=== PATIENT | female | born 1945 | race Caucasian/White ===

== ENCOUNTER → 2022-03-21 13:24 | Outpatient (BNVA) | payer MEDICARE, BC, SELFPAY | PROVIDERS: PCP Physical Medicine & Rehabilitation; Visit Provider Internal Medicine | DX: M53.3 Sacrococcygeal disorders, not elsewhere classified (principal) | CPT/HCPCS: 99202 ==

== ENCOUNTER 2022-04-29 08:53 | Day surgery (SDC) | payer MEDICARE, BC, SELFPAY ==
[2022-04-22 08:36] VITALS: BMI 22.4
--- NOTE | ~2022-04-29 | FL_ITS ---
EXAMINATION: XR FLUOROSCOPY WITH IMAGES CLINICAL INFORMATION: Sacral iliac RFA COMPARISON: None. TECHNIQUE: Fluoroscopy performed by Dr. Bo Fluoroscopy time: 32.3 seconds 9.74 mGy Images: 7 FINDINGS: Probes and wires are seen overlying the sacrum FL/FL guidance in OR IMPRESSION: Fluoroscopy for pain management procedure.
--- NOTE | 2022-04-29 11:15 | MHC.SHP ---
Pre-Procedural Eval Section A Date of Service: 04/29/22 The patient is an INPATIENT: No Changes since office visit: Yes Patient answered all questions The History & Physical has been completed within 30 days and I have reviewed it.: No Section B Chief Complaint: sacrococcygeal pain Relevant Family History (Specify if Yes): No Relevant Social History: Other (specify) Present Medications: see Short Stay Collaborative assessment Medical History: Significant History (SIJ pain) History of Previous Operations: No relevant previous surgery Allergies: Allergies Allergy/AdvReac Type Severity Reaction Status Date / Time ciprofloxacin [From Cipro] Allergy Severe Anaphylaxis Verified 03/21/22 13:29 Review of Systems Sugical H&P ROS: Negative: Constitution, Cardiovascular and Respiratory Exam Surgical H&P Exam: Normal: HEENT, Normal: Heart and Normal: Lungs Plan Diagnosis/Plan: Unchanged I have reviewed the history and physical and performed a pertinent physical examination on my patient. No changes have occurred unless specified.
--- NOTE | 2022-04-29 11:16 | P.BOP_ITS ---
Brief Operative Note Date of Service: 04/29/22 Pre-op diagnosis: Sacroiliac joint pain, left Post-op diagnosis: same Procedure: Sacroiliac joint innervation cooled radiofrequency ablation, left Surgeon: Lars Bo MD Was an Dehydrogenation Operator Head used for this Procedure?: No Estimated blood loss (mL): 3 Pathology: none sent Condition: stable Disposition: same day
--- NOTE | 2022-04-29 11:16 | W.PM.OPN ---
Operative Note Operative Note Date of Service: 04/29/22 Narrative: Cooled radiofrequency ablation, left L5 dorsal ramus and lateral branches of the S1, S2, S3 posterior primary rami nerves - fluoroscopic guided After obtaining written consent, pre-procedure blood pressure and heart rate were stable and recorded in the nursing record. Standard monitors were applied. The patient was placed prone on the fluoroscopy table. The area overlying the peripheral nerves was widely prepped with chloraprep, allowed to dry and sterilely draped. Using fluoroscopy, the appropriate landmarks were identified. The skin overlying the target was anesthetized with 0.5% lidocaine. 18 gauge 50mm radiofrequency needles were advanced under fluoroscopic guidance to the sacral ala (L5 medial branch) and around the lateral margins of the S1, S2 & S3 foramina (sacral lateral branches). Verification using lateral and AP views. Aspiration was negative for heme. Impedences were verified under 600 ohms. Sensory testing (50 Hz) and then motor testing (2 Hz) confirmed needle placement at each site within the appropriate voltage thresholds. Each site was injected with 0.5 ml 2% preservative-free lidocaine. The skin was raised above the underlying tissue using local anesthetic in saline solution to minimize risk of skin injury from the radiofrequency ablation tip. Radiofrequency lesioning was performed for 165 seconds at 80 deg Celcius tissue temperature. Each site was then injected with 1 ml 0.5% preservative-free ropivacaine. The needles were removed, skin cleansed and a sterile bandage was applied. The patient tolerated the procedure well and no complications were encountered. No immediate evidence of skin damage was seen. Following the procedure the patient's vital signs were stable. The patient was discharged home in good condition with post-procedural instructions. Time Out: Immediately prior to the procedure, the following was verbally confirmed that there is a signed consent form and that the correct patient, planned procedure, site and side are consistent with documentation and that necessary equipment and/or blood products are available prior to the start of the case. Complications: none EBL: <5 cc
[2022-04-29 12:14] VITALS: BP 149/70; PULSE 58; RESP 16; TEMP 36.9; O2SAT 97
== END 2022-04-29 12:26 | disposition home or self-care (01) ==
PROVIDERS: PCP Family Medicine; Visit Provider Internal Medicine
PROC: (CPT 64635; principal; 2022-04-29 10:30)
DX: M53.3 Sacrococcygeal disorders, not elsewhere classified (principal); M81.0 Age-related osteoporosis without current pathological fracture; M19.90 Unspecified osteoarthritis, unspecified site; I25.10 Atherosclerotic heart disease of native coronary artery without angina pectoris; I10 Essential (primary) hypertension; Z87.891 Personal history of nicotine dependence; E03.9 Hypothyroidism, unspecified; F32.A Depression, unspecified; Z79.899 Other long term (current) drug therapy; Z88.1 Allergy status to other antibiotic agents; Z96.662 Presence of left artificial ankle joint; Z96.642 Presence of left artificial hip joint
CPT/HCPCS: 64625

== ENCOUNTER → 2022-06-13 13:57 | Outpatient (BNVA) | payer MEDICARE, BC, SELFPAY | PROVIDERS: PCP Family Medicine; Visit Provider Internal Medicine | DX: M53.3 Sacrococcygeal disorders, not elsewhere classified (principal) | CPT/HCPCS: 99212 ==

== ENCOUNTER 2022-10-19 09:48 | Day surgery (SDC) | payer MEDICARE, BC, SELFPAY ==
[2022-10-13 11:53] VITALS: BMI 22.2
--- NOTE | 2022-10-18 13:06 | HO.ANESPROP2 ---
Documented by User: Liudmila Latif NP 10/18/22 13:27 HPI - Anesthesia Eval Consult details Narrative: 76yo F for Right 2nd Toe Amputation Cardiac cleared Pseudocholinesterase deficiency PMFSH Active Problems Active Problems: All Active Problems (Updated 10/13/22 @ 11:53 by Iveth Khoury RN) Osteoporosis (Acute) Insomnia (Acute) Constipation (Acute) GERD (gastroesophageal reflux disease) (Acute) SI (sacroiliac) joint dysfunction (Acute) CAD (coronary artery disease) (Acute) Hypothyroidism (Acute) Depression (Acute) Hypertension (Acute) Past Medical History Medical History (Updated 10/13/22 @ 11:53 by Iveth Khoury RN) Arthritis CAD (coronary artery disease) Chronic renal insufficiency Constipation Depression Family history of pseudocholinesterase deficiency GERD (gastroesophageal reflux disease) Hypertension Hypothyroidism Insomnia Osteoarthritis Osteoporosis 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 Surgical History Surgical History (Updated 10/13/22 @ 11:53 by Iveth Khoury RN) H/O colonoscopy H/O: hysterectomy History of left ankle joint replacement History of left hip replacement Hx of bilateral cataract extraction Hx of bilateral inguinal hernia repair Hx of cholecystectomy Hx of reduction mammoplasty Social History Social History Are you a primary healthcare science specialist to a significant other at home: No Do you presently have visiting nurse or other home services: No Patient Tobacco Use Status: Former Tobacco user Quit Date: 1979 Tobacco use type: Cigarette Use of substances other than those prescribed or required for medical reasons: Yes Substance Use Type Other:: has medical marijuana card Substance Use Frequency: Weekly Have you been hit, kicked, punched, or otherwise hurt by someone within the past year? If so, by whom?: No Are you DNR?: Yes Advance Directives: No Advance Directives Information Provided: Yes (advised to bring copies DOS) Advance Directives on File: No Recently lost weight without trying: No Eating poorly because of decreased appetite: No Nutrition Risks: No Nutritional Risk Poor oral hygiene: No Meds Allergies Allergy/AdvReac Type Severity Reaction Status Date / Time ciprofloxacin [From Cipro] Allergy Severe Anaphylaxis Verified 10/19/22 09:57 Home Medications Medication Instructions Recorded Confirmed Last Taken Type bupropion HCl 150 mg 24 hr tablet, 150 mg PO QAM 03/21/22 10/13/22 10/19/22 08:00 History extended release diclofenac sodium 1 % topical gel 2 g topical TID PRN Pain 03/21/22 10/13/22 Unknown History diltiazem HCl 180 mg 180 mg PO DAILY 03/21/22 10/13/22 10/19/22 08:00 History capsule,extended release 24 hr, controlled (DILT-XR) duloxetine 60 mg capsule,delayed 60 mg PO DAILY 03/21/22 10/13/22 10/19/22 08:00 History release estradiol 10 mcg vaginal tablet 10 mcg vaginal 2XW 03/21/22 10/13/22 Unknown History levothyroxine 88 mcg tablet 88 mcg PO QAM 03/21/22 10/13/22 10/19/22 08:00 History metoprolol succinate 25 mg 12.5 mg PO DAILY 03/21/22 10/13/22 10/19/22 08:00 History tablet,extended release 24 hr omeprazole 20 mg capsule,delayed 20 mg PO DAILY 03/21/22 10/13/22 10/19/22 08:00 History release oxycodone 10 mg tablet 10 mg PO QID PRN Pain 03/21/22 10/13/22 10/19/22 08:00 History trazodone 50 mg tablet 25 mg PO BEDTIME PRN Insomnia 03/21/22 10/13/22 Unknown History Exam Exam Date and Time: October 18, 2022 1306 Height,Weight and Vital Signs: Height 4 ft 11 in Weight 49.895 kg Narrative Narrative: EKG 09/2022 SR with RBBB @ 63 No changes from prior ECHO 11/2021 LV nml in size and thickness LV systolic function is nml with EF 70% No signif LV WMA Nml RV size and function Trace mitral and tricuspid valve regurg PASP nml Cardiac cath 11/2021 No signif CAD is seen. 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 Family History Family history of problems with anesthesia: No (Pseudochlineserase deficiency) Surgical History Surgical History (Updated 10/13/22 @ 11:53 by Iveth Khoury RN) H/O colonoscopy H/O: hysterectomy History of left ankle joint replacement History of left hip replacement Hx of bilateral cataract extraction Hx of bilateral inguinal hernia repair Hx of cholecystectomy Hx of reduction mammoplasty Social History Social History Are you a primary healthcare science specialist to a significant other at home: No Do you presently have visiting nurse or other home services: No Patient Tobacco Use Status: Former Tobacco user Quit Date: 1979 Tobacco use type: Cigarette Use of substances other than those prescribed or required for medical reasons: Yes Substance Use Type Other:: has medical marijuana card Substance Use Frequency: Weekly Have you been hit, kicked, punched, or otherwise hurt by someone within the past year? If so, by whom?: No Are you DNR?: Yes Advance Directives: No Advance Directives Information Provided: Yes (advised to bring copies DOS) Advance Directives on File: No Recently lost weight without trying: No Eating poorly because of decreased appetite: No Nutrition Risks: No Nutritional Risk Poor oral hygiene: No Meds Allergies Allergy/AdvReac Type Severity Reaction Status Date / Time ciprofloxacin [From Cipro] Allergy Severe Anaphylaxis Verified 10/19/22 09:57 Home Medications Medication Instructions Recorded Confirmed Last Taken Type bupropion HCl 150 mg 24 hr tablet, 150 mg PO QAM 03/21/22 10/13/22 10/19/22 08:00 History extended release diclofenac sodium 1 % topical gel 2 g topical TID PRN Pain 03/21/22 10/13/22 Unknown History diltiazem HCl 180 mg 180 mg PO DAILY 03/21/22 10/13/22 10/19/22 08:00 History capsule,extended release 24 hr, controlled (DILT-XR) duloxetine 60 mg capsule,delayed 60 mg PO DAILY 03/21/22 10/13/22 10/19/22 08:00 History release estradiol 10 mcg vaginal tablet 10 mcg vaginal 2XW 03/21/22 10/13/22 Unknown History levothyroxine 88 mcg tablet 88 mcg PO QAM 03/21/22 10/13/22 10/19/22 08:00 History metoprolol succinate 25 mg 12.5 mg PO DAILY 03/21/22 10/13/22 10/19/22 08:00 History tablet,extended release 24 hr omeprazole 20 mg capsule,delayed 20 mg PO DAILY 03/21/22 10/13/22 10/19/22 08:00 History release oxycodone 10 mg tablet 10 mg PO QID PRN Pain 03/21/22 10/13/22 10/19/22 08:00 History trazodone 50 mg tablet 25 mg PO BEDTIME PRN Insomnia 03/21/22 10/13/22 Unknown History Exam Airway Mallampati Class: II TM Dist: >3cm Neck ROM: Full Heart: rr Lungs: cta Assessment and Plan Final Anesthetic Review Family History of Problems with Anesthesia: No (Pseudochlineserase deficiency) NPO: Yes ASA Class: II Final Preanesthetic Review: No Changes in Pt Med Stat, Meds/Allgs Chart Reviewed, Consent Obtained/Reviewed and Anes Risks/Benef Reviewed Patient Risk: Low Procedure Risk: Low Anesthetic Plan Anesthetic Plan: MAC: Disposition: Standard PACU
[2022-10-19 10:07] VITALS: BP 134/78; PULSE 65; RESP 16; TEMP 36.8; O2SAT 98
[2022-10-19] MEDS: Lactated Ringers 1,000 ML 100 ML IVCONT (10:40)
[2022-10-19 11:40] VITALS: BP 123/48; PULSE 61; RESP 16; TEMP 36.1; O2SAT 96
[2022-10-19 11:55] VITALS: BP 135/71; PULSE 57; RESP 18; O2SAT 99
[2022-10-19] MEDS: Acetaminophen 1,000 MG/100 ML PIGGYBACK 400 MG IV (11:58)
[2022-10-19 12:10] VITALS: BP 142/69; PULSE 58; RESP 16; O2SAT 98
[2022-10-19 12:25] VITALS: BP 144/74; PULSE 61; RESP 16; TEMP 36.8; O2SAT 98
--- NOTE | 2022-10-20 10:24 | OP_ITS ---
SURGEON: Ovidio Paz DPM PREOPERATIVE DIAGNOSIS: Painful chronic right second digit. POSTOPERATIVE DIAGNOSIS: Resolved second digit. PROCEDURE PERFORMED: Radical debridement and removal of the right second toe. ESTIMATED BLOOD LOSS: None. COMPLICATIONS: None. ANESTHESIA: MAC anesthesia with local total block, 15 mL of 50:50 mixture of 1% plain lidocaine and 0.5% plain ropivacaine. ASSISTANTS: SPECIMENS: Digit second right. RECORDER HELPER GRAVITY PROSPECTING: None. INDICATION: This patient has been patient of mine for some now and has extreme pain in all shoe gear of the right second digit. The patient has exhausted all conservative treatment and watch removal of the digit. MATERIALS: 3-0 Prolene and 3-0 Vicryl. INJECTABLES: None, but patient was given Toradol intraoperatively and antibiotics by Anesthesia. CONDITION: The patient tolerated procedure and anesthesia well. DISPOSITION: The patient was sent to recovery room in good stable condition with vital signs stable as per Anesthesia. It must be noted that there was good reperfusion of all the four toes as well as the stump of the right second toe following procedure. DESCRIPTION OF PROCEDURE: The patient was brought into the operating room via gurney and placed on the operating room table in the supine position. Once the patient was given adequate amount of MAC anesthesia, mixture of the above anesthesia was injected into the right foot. A 15 blade was used in order to make an incision approximately over the MPJ of the right second toe. A 15 blade was used in order to make a curvilinear incision which was made on the plantar surface. After the curved Metzenbaum scissors were used in order to dissect all the way down to the joint space. Once this was accomplished, the joint was freed up as well as the tendon and muscle ligament of the right second toe radically debrided and removed. Once this was accomplished, copious amounts of normal sterile saline were infiltrated into the area in order to lavage it and was seen at the area was cleaned. Next, 3-0 Vicryl was used in order to sew up the deep layers and 3-0 Prolene in order to sew up the skin edges using simple suture technique. It must be noted that the skin edges reapproximated very well and formed a small stump where the second digit was. There was adequate perfusion seen and noted to the nurse. There was no tourniquet used during the procedure. Xeroform was placed over the incision site, followed by sterile dressing. The patient also was given an Sean wrap and Kerlix bandage. The patient was provided with a Cam walker which she had following the procedure which she brought. The patient was sent to recovery room in good stable condition with anesthesia. Vital signs are stable. The patient has been provided all postop instructions and postop pain medicine. The patient did receive intraoperatively antibiotics as well as Toradol. The patient will be seen with me in a few days. It must be noted that hemostasis was none. MALIA Epstein/ANNE / [phone]
== END 2022-10-19 13:35 | disposition home or self-care (01) ==
LOC: HO.SSS 09:48
PROVIDERS: PCP Family Medicine; Visit Provider Podiatrist
PROC: (CPT 28810; principal; 2022-10-19 11:00)
DX: M79.671 Pain in right foot (principal); M19.90 Unspecified osteoarthritis, unspecified site; I10 Essential (primary) hypertension; E03.9 Hypothyroidism, unspecified; D64.9 Anemia, unspecified; Z79.899 Other long term (current) drug therapy; Z88.1 Allergy status to other antibiotic agents; Z87.891 Personal history of nicotine dependence
CPT/HCPCS: 28810; 88305; 88311; J0131; J0690; J1885; J2405; J2795; J3010

== ENCOUNTER 2023-04-21 11:47 | Outpatient (AMB) | payer MEDICARE, BC, SELFPAY ==
--- NOTE | 2023-04-21 11:49 | A.OFFVIS_ITS ---
Intake Vital Signs 04/21/23 11:55 Height 5 ft Weight 110 lb 2 oz BMI 21.5 BP 150/74 H Blood Pressure Location Lt brachial Respiration 16 Pulse 68 Pulse Source Pulse Oximeter Pulse Oximetry (%) 99 Oxygen Delivery Method Room Air Oxygen Flow Rate 96 Intake Visit Reasons: Follow Up/Sacrococcygeal Pain Allergies ciprofloxacin [From Cipro] Allergy (Severe, Verified 04/21/23 11:49) Anaphylaxis HPI Follow Up/Sacrococcygeal Pain HPI Details 77-year-old female presenting today for a follow-up of sacrococcygeal pain. She states that her pain relapsed about a month ago after a long train journey. The pain is the same as before and is localized in the lower back and sacrum regions. She has a history of arthritis. She is amenable to repeat the RFA again. She is not interested in nerve stimulators at this time. She had tried injections, physical therapy, and oxycodone with no relief. Past Procedures: 04/29/22: Left SIJ RFA ? 90% relief for about 11 months. [facility] Medical History (Updated 10/13/22 @ 11:53 by Iveth Khoury RN) Arthritis CAD (coronary artery disease) Chronic renal insufficiency Constipation Depression Family history of pseudocholinesterase deficiency GERD (gastroesophageal reflux disease) Hypertension Hypothyroidism Insomnia Osteoarthritis Osteoporosis 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 Surgical History (Updated 10/13/22 @ 11:53 by Iveth Khoury RN) H/O colonoscopy H/O: hysterectomy History of left ankle joint replacement History of left hip replacement Hx of bilateral cataract extraction Hx of bilateral inguinal hernia repair Hx of cholecystectomy Hx of reduction mammoplasty Social History Are you a primary complex care nurse practitioner to a significant other at home: No Do you presently have visiting nurse or other home services: No Patient Tobacco Use Status: Former Tobacco user Quit Date: 1979 Tobacco use type: Cigarette Review of Systems Const All systems reviewed & are unremarkable except as noted in HPI and below Physical Exam Vital Signs: Last Vital Signs Pulse 68 04/21/23 11:55 Resp 16 04/21/23 11:55 BP 150/74 H 04/21/23 11:55 Pulse Ox 99 04/21/23 11:55 Oxygen Delivery Method Room Air 04/21/23 11:55 Oxygen Flow Rate 96 04/21/23 11:55 BMI result Body Mass Index 21.5 General: Appears afebrile. Alert and oriented. Mood and affect appropriate. Follows and participates in conversation appropriately. Respiratory effort is unlabored. Able to transition from sit to stand unassisted. Ambulates with bilaterally normal heel strike and toe off. Results Reviewed Results Reviewed: No imaging is available for review. Assessment & Plan Assessment & Plan (1) SI (sacroiliac) joint dysfunction: Comment: Status post SIJ innervation RFA with moderate relief in October 2021 and excellent relief in April 2022 Code(s): M53.3 - Sacrococcygeal disorders, not elsewhere classified Plan Will schedule her for a repeat left SIJ RFA as the patient had 90% relief for 11 months after the last RFA. Discussed the risks and benefits of the procedure with the patient in detail. All questions were answered. The patient is on board with the plan. Justification for interventional therapy: ? Patient with average pain > 6/10 ? Patient has exhausted conservative therapy ? Previous therapeutic RFA and diagnostic injections all provided >50% relief Scribed for Dr. Bo by Nishant Mansfield, caregivers non medical, on 04/21/2023. I, Dr. Bo, have personally reviewed and agree with the information entered by the scribe. Coding Level of Care Code Est Pt Level 3 (83843) Diagnoses SI (sacroiliac) joint dysfunction M53.3
[2023-04-21 11:55] VITALS: BP 150/74; PULSE 68; RESP 16; O2SAT 99; BMI 21.5
== END 2023-04-21 12:11 | disposition home or self-care (01) ==
PROVIDERS: PCP Family Medicine; Visit Provider Internal Medicine
DX: M53.3 Sacrococcygeal disorders, not elsewhere classified (principal)
CPT/HCPCS: 99213

== ENCOUNTER → 2023-04-21 11:47 | Outpatient (BNVA) | payer MEDICARE, BC, SELFPAY | PROVIDERS: PCP Family Medicine; Visit Provider Internal Medicine | DX: M53.3 Sacrococcygeal disorders, not elsewhere classified (principal) | CPT/HCPCS: 99212 ==

== ENCOUNTER 2023-05-10 12:26 | Day surgery (SDC) | payer MEDICARE, BC, SELFPAY ==
--- NOTE | ~2023-05-10 | FL_ITS ---
EXAMINATION: XR FLUOROSCOPY WITH IMAGES CLINICAL INFORMATION: Left SI joint RFA. COMPARISON: None available. TECHNIQUE: Fluoroscopy Supervised By: Dr. Lars Bo. Fluoroscopy Time: 0.5 minutes. Cumulative Dose: 7.39 mGy. DAP: 0.794 Gycm2. Images: 5. FINDINGS: 5 digital images obtained with 3 needle positions posterior to left S1, S2 and S3 vertebra connected to electrodes. No contrast visualized. Visualized sacrum and the left SI joint appears unremarkable. FL/FL guidance in OR IMPRESSION: Fluoroscopy guidance was provided to referring physician for left SI joint RFA.
[2023-05-10 12:41] VITALS: BMI 22.6
--- NOTE | 2023-05-10 14:06 | MHC.SHP ---
Pre-Procedural Eval Section A Date of Service: 05/10/23 The patient is an INPATIENT: No Changes since office visit: Yes Patient answered all questions The History & Physical has been completed within 30 days and I have reviewed it.: No Section B Chief Complaint: Sacrococcygeal disorders, not elsewhere classified Relevant Family History (Specify if Yes): No Relevant Social History: None Present Medications: see Short Stay Collaborative assessment Medical History: No relevant PMH History of Previous Operations: No relevant previous surgery Allergies: Allergies Allergy/AdvReac Type Severity Reaction Status Date / Time ciprofloxacin [From Cipro] Allergy Severe Anaphylaxis Verified 04/21/23 11:49 Review of Systems Sugical H&P ROS: Negative: Constitution, Cardiovascular and Respiratory Exam Surgical H&P Exam: Normal: HEENT, Normal: Heart and Normal: Lungs Plan Diagnosis/Plan: Unchanged I have reviewed the history and physical and performed a pertinent physical examination on my patient. No changes have occurred unless specified. Proceed with left sacroiliac joint innervation Cooled radiofrequency ablation. Time Spent With Patient Time: Total time managing care of this patient today ____ minutes.
--- NOTE | 2023-05-10 14:07 | PM.OP ---
Brief Operative Note Date of Service: 05/10/23 Pre-op diagnosis: Sacroiliac joint pain Post-op diagnosis: same Procedure: Cooled radiofrequency ablation, left L5 dorsal ramus and lateral branches of the S1, S2, S3 posterior primary rami nerves - fluoroscopic guided Implants: None Surgeon: Lars Bo MD Anesthesia: none Was an Director [employer] used for this Procedure?: No Estimated blood loss (mL): 2 Pathology: none sent Condition: stable Disposition: same day
--- NOTE | 2023-05-10 14:08 | W.PM.OPN ---
Operative Note Operative Note Date of Service: 05/10/23 Narrative: Cooled radiofrequency ablation, Left L5 dorsal ramus and lateral branches of the S1, S2, S3 posterior primary rami nerves - fluoroscopic guided After obtaining written consent, pre-procedure blood pressure and heart rate were stable and recorded in the nursing record. Standard monitors were applied. The patient was placed prone on the fluoroscopy table. The area overlying the peripheral nerves was widely prepped with chloraprep, allowed to dry and sterilely draped. Using fluoroscopy, the appropriate landmarks were identified. The skin overlying the target was anesthetized with 0.5% lidocaine. 18 gauge 50mm radiofrequency needles were advanced under fluoroscopic guidance to the sacral ala (L5 medial branch) and around the lateral margins of the S1, S2 & S3 foramina (sacral lateral branches). Verification was done using lateral and AP views. Aspiration was negative for heme. Impedences were verified under 600 ohms. Sensory testing (50 Hz) and then motor testing (2 Hz) confirmed needle placement at each site within the appropriate voltage thresholds. Each site was injected with 0.5-1 ml 2% preservative-free lidocaine. Radiofrequency lesioning was performed for 165 seconds at 80 deg Celcius tissue temperature. Each site was then injected with 1 ml 0.5% preservative-free ropivacaine. The needles were removed, skin cleansed and a sterile bandage was applied. The patient tolerated the procedure well and no complications were encountered. Following the procedure the patient's vital signs were stable. The patient was discharged home in good condition with post-procedural instructions. Time Out: Immediately prior to the procedure, the following was verbally confirmed that there is a signed consent form and that the correct patient, planned procedure, site and side are consistent with documentation and that necessary equipment and/or blood products are available prior to the start of the case. Complications: none EBL: <5 cc
[2023-05-10 15:30] VITALS: BP 150/87; PULSE 64; RESP 20; TEMP 36.6; O2SAT 97
== END 2023-05-10 15:50 | disposition home or self-care (01) ==
PROVIDERS: PCP Family Medicine; Visit Provider Internal Medicine
PROC: (CPT 64635; principal; 2023-05-10 13:40)
DX: M46.1 Sacroiliitis, not elsewhere classified (principal); M53.3 Sacrococcygeal disorders, not elsewhere classified; M54.50 Low back pain, unspecified; M19.90 Unspecified osteoarthritis, unspecified site; M81.0 Age-related osteoporosis without current pathological fracture; I25.10 Atherosclerotic heart disease of native coronary artery without angina pectoris; I10 Essential (primary) hypertension; E88.09 Other disorders of plasma-protein metabolism, not elsewhere classified; Z96.642 Presence of left artificial hip joint; Z96.662 Presence of left artificial ankle joint; Z79.899 Other long term (current) drug therapy; Z88.1 Allergy status to other antibiotic agents; Z66 Do not resuscitate; Z98.890 Other specified postprocedural states; Z87.891 Personal history of nicotine dependence
CPT/HCPCS: 64625; J2795

== ENCOUNTER → 2023-05-10 12:26 | Outpatient (BNV) | payer MEDICARE, BC, SELFPAY | PROVIDERS: PCP Family Medicine; Visit Provider Internal Medicine | DX: M53.3 Sacrococcygeal disorders, not elsewhere classified (principal); Z00.00 Encounter for general adult medical examination without abnormal findings | CPT/HCPCS: 64625 ==

== ENCOUNTER 2023-07-07 11:23 | Outpatient (AMB) | payer MEDICARE, BC, SELFPAY ==
--- NOTE | 2023-07-07 11:26 | MHC.OFFVIS ---
Intake Vital Signs 07/07/23 11:27 Height 4 ft 11 in Weight 112 lb BMI 22.6 Respiration 14 Pulse 58 Pulse Source Pulse Oximeter Pulse Oximetry (%) 96 Oxygen Delivery Method Room Air Intake Visit Reasons: s/p left SIJ RFA Allergies ciprofloxacin [From Cipro] Allergy (Severe, Verified 07/07/23 11:30) Anaphylaxis Medication List - Last Reconciled 07/07/23 by Norma Barcenas LPN bupropion HCl 150 mg PO QAM diclofenac sodium 1% 2 grams topical TID PRN duloxetine 60 mg PO DAILY estradiol 10 mcg vaginal 2XW levothyroxine 88 mcg PO QAM losartan 50 mg PO DAILY metoprolol succinate ER 25 mg PO DAILY oxycodone 10 mg PO QID PRN trazodone 25 mg PO BEDTIME PRN HPI s/p left SIJ RFA HPI Details 77-year-old female who presents today to the office for a status post left SIJ RFA. The patient reports 80% relief following the procedure. She states that her back pain has improved and is currently manageable. She has occasional mild arthritic joint pain. She was able to travel on a cruise after the last procedure. She returned from the cruise vacation last week. She is able to walk about a mile before her pain starts coming back. She is working with her insurance company regarding payment and procedure coverage. She has a history of left sided hip replacement in the past. Past Procedures: 05/10/23: Cooled radiofrequency ablation, Left L5 dorsal ramus and lateral branches of the S1, S2, S3 posterior primary rami nerves - fluoroscopic guided: 80% relief. 04/29/22: Left SIJ RFA ? 90% relief for about 11 months. [facility] Medical History (Updated 10/13/22 @ 11:53 by Iveth Khoury RN) Chronic renal insufficiency Arthritis Family history of pseudocholinesterase deficiency Pseudocholinesterase deficiency Osteoporosis Osteoarthritis Insomnia Constipation GERD (gastroesophageal reflux disease) SI (sacroiliac) joint dysfunction CAD (coronary artery disease) Hypothyroidism Depression Hypertension Surgical History (Updated 10/13/22 @ 11:53 by Iveth Khoury RN) Hx of reduction mammoplasty Hx of bilateral inguinal hernia repair Hx of bilateral cataract extraction H/O colonoscopy Hx of cholecystectomy H/O: hysterectomy History of left ankle joint replacement History of left hip replacement Social History Are you a primary floor care technician to a significant other at home: No Do you presently have visiting nurse or other home services: No Patient Tobacco Use Status: Former Tobacco user Quit Date: 1979 Tobacco use type: Cigarette Review of Systems Const All systems reviewed & are unremarkable except as noted in HPI and below Physical Exam Vital Signs: Last Vital Signs Pulse 58 07/07/23 11:27 Resp 14 07/07/23 11:27 Pulse Ox 96 07/07/23 11:27 Oxygen Delivery Method Room Air 07/07/23 11:27 BMI result Body Mass Index 22.6 General: Appears afebrile. Alert and oriented. Mood and affect appropriate. Follows and participates in conversation appropriately. Respiratory effort is unlabored. Able to transition from sit to stand unassisted. Ambulates with bilaterally normal heel strike and toe off. Results Reviewed Results Reviewed: No imaging is available for review. Assessment & Plan Assessment & Plan (1) SI (sacroiliac) joint dysfunction: Comment: Status post SIJ innervation RFA with moderate relief in October 2021 and excellent relief in April 2022 Code(s): M53.3 - Sacrococcygeal disorders, not elsewhere classified Plan We discussed trialing medial cluneal nerve stimulator placement if and when pain returns instead of repeating RFA procedure for a more permanent solution. The patient will follow-up as needed. Scribed for Dr. Bo by Nishant Mansfield, medical records specialist, on 07/07/2023. I, Dr. Bo, have personally reviewed and agree with the information entered by the scribe. Coding Level of Care Code Est Pt Level 3 (98619) Diagnoses SI (sacroiliac) joint dysfunction M53.3
[2023-07-07 11:27] VITALS: PULSE 58; RESP 14; O2SAT 96; BMI 22.6
== END 2023-07-07 11:41 | disposition home or self-care (01) ==
PROVIDERS: PCP Family Medicine; Visit Provider Internal Medicine
DX: M53.3 Sacrococcygeal disorders, not elsewhere classified (principal)
CPT/HCPCS: 99213

== ENCOUNTER → 2023-07-07 11:23 | Outpatient (BNVA) | payer MEDICARE, BC, SELFPAY | PROVIDERS: PCP Family Medicine; Visit Provider Internal Medicine | DX: M53.3 Sacrococcygeal disorders, not elsewhere classified (principal) | CPT/HCPCS: 99212 ==

== ENCOUNTER 2024-03-18 10:23 | Outpatient (AMB) | payer MEDICARE, BC, SELFPAY ==
--- NOTE | 2024-03-18 10:26 | MHC.OFFVIS ---
Vital Signs 03/18/24 10:28 Height 4 ft 11 in Weight 110 lb BMI 22.2 BP 130/78 Blood Pressure Location Lt brachial Position Sitting Respiration 14 Pulse 88 Pulse Source Pulse Oximeter Pulse Oximetry (%) 100 Oxygen Delivery Method Room Air Intake Visit Reasons: PROCEDURE DISCUSSION Allergies ciprofloxacin [From Cipro] Allergy (Severe, Verified 03/18/24 10:28) Anaphylaxis Medication List - Last Reconciled 03/18/24 by Norma Barcenas LPN bupropion HCl XL 150 mg PO QAM diclofenac sodium 1% 2 grams topical TID PRN duloxetine 60 mg PO DAILY estradiol 10 mcg vaginal 2XW levothyroxine 88 mcg PO QAM losartan 50 mg PO DAILY metoprolol succinate ER 25 mg PO DAILY oxycodone 10 mg PO QID PRN trazodone 25 mg PO BEDTIME PRN HPI HPI PROCEDURE DISCUSSION: Details: 78-year-old female who presents today to the office for a discussion of procedure. She reports a diminishing return of the pain post RFA after 9?10 months. She has been sitting on the heat pad and lidocaine patches with good relief. She is going to [place] for a week on April 29, 2024. She is also going on a two-week cruise trip. Past Procedures: 05/10/23: Cooled radiofrequency ablation, Left L5 dorsal ramus and lateral branches of the S1, S2, S3 posterior primary rami nerves - fluoroscopic guided: 80% relief. 04/29/22: Left SIJ RFA ? 90% relief for about 11 months. [facility] Medical History (Updated 03/21/24 @ 15:18 by aLrs Bo MD) Chronic renal insufficiency Arthritis Family history of pseudocholinesterase deficiency Pseudocholinesterase deficiency Osteoporosis Osteoarthritis Insomnia Constipation GERD (gastroesophageal reflux disease) SI (sacroiliac) joint dysfunction CAD (coronary artery disease) Hypothyroidism Depression Hypertension Surgical History (Updated 10/13/22 @ 11:53 by Iveth Khoury RN) Hx of reduction mammoplasty Hx of bilateral inguinal hernia repair Hx of bilateral cataract extraction H/O colonoscopy Hx of cholecystectomy H/O: hysterectomy History of left ankle joint replacement History of left hip replacement Social History Are you a primary director of critical care to a significant other at home: No Do you presently have visiting nurse or other home services: No Patient Tobacco Use Status: Former Tobacco user Tobacco use type: Cigarette Review of Systems Const All systems reviewed & are unremarkable except as noted in HPI and below Physical Exam Vital Signs: Last Vital Signs Pulse 88 03/18/24 10:28 Resp 14 03/18/24 10:28 BP 130/78 03/18/24 10:28 Pulse Ox 100 03/18/24 10:28 Oxygen Delivery Method Room Air 03/18/24 10:28 BMI result Body Mass Index 22.2 General: Appears afebrile. Alert and oriented. Mood and affect appropriate. Follows and participates in conversation appropriately. Respiratory effort is unlabored. Able to transition from sit to stand unassisted. Ambulates with bilaterally normal heel strike and toe off. Results Reviewed Results Reviewed: No imaging is available for review. 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 Once we have received psychology clearance, we will plan for a trial of left medial cluneal nerve stimulation with the Curonix device. The patient will receive a call from [facility] for the psychology assessment. I advised the patient to continue to use lidocaine patches and a heating pad at home for pain management. Scribed for Dr. Bo by Nishant Mansfield, medical radiation tech, on 03/18/2024. I, Dr. Bo, have personally reviewed and agree with the information entered by the scribe. 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
[2024-03-18 10:28] VITALS: BP 130/78; PULSE 88; RESP 14; O2SAT 100; BMI 22.2
== END 2024-03-18 11:02 | disposition home or self-care (01) ==
LOC: HO.PMC 10:23
PROVIDERS: PCP Family Medicine; Visit Provider Internal Medicine
DX: M53.3 Sacrococcygeal disorders, not elsewhere classified (principal); G58.8 Other specified mononeuropathies
CPT/HCPCS: 99214

== ENCOUNTER → 2024-03-18 10:23 | Outpatient (BNVA) | payer MEDICARE, BC, SELFPAY | PROVIDERS: PCP Family Medicine; Visit Provider Internal Medicine | DX: M53.3 Sacrococcygeal disorders, not elsewhere classified (principal); G58.8 Other specified mononeuropathies | CPT/HCPCS: 99212 ==